=== PATIENT | female | born 1995 | race Caucasian/White ===

== ENCOUNTER 2017-01-05 08:48 | Inpatient (IN) | payer MEDICAID ==
[~2017-01-05] VITALS: Ht 162.6 cm; Wt 82.0 kg
--- NOTE | 2017-01-05 09:05 | TRIAGE ---
OB Triage Datetime Report Generated by CPN: 01/05/2017 09:05 Datetime: 01/05/2017 09:02 Time of Arrival: 01/05/2017 08:45 EGA: 39.2 Arrived By: Wheelchair Arrived From: Home Chief Complaint: SROM AT 0730 Movement: Present Contractions: Irregular Patient Complaints: Other Time Provider Notified: 01/05/2017 09:00 Provider Notified: DR GONZALEZ Initial Plan: EFM,NITRAZINE,CALL DR LISA Datetime: 01/05/2017 09:01 Maternal Assessment Level of Consciousness: Fully Conscious DTR's/Clonus: DTRs 2+; No Clonus Headache: Denies Blurred Vision: No Respiratory Effort: Unlabored; Regular Rhythm; Equal Expansion Breath Sounds, Left: Clear and Equal Breath Sounds, Right: Clear and Equal Nausea/Vomiting: Denies RUQ Epigastric Pain: Denies Facial Edema: None Temperature Route: Axillary Fall Risk Assessment History of Falling: (0) No Secondary Diagnosis: (0) No Ambulatory Aid: (0) Bedrest/Nurse Assist IV Therapy: (0) No Gait: (0) Normal/Bedrest/Immobile Mental Status: (0) Oriented to Own Ability Fall Score: 0 Fall Risk Score Definition: No Risk: No action required
[2017-01-05 09:07] VITALS: Ht 162.6 cm; Wt 82.0 kg
[2017-01-05 09:08] VITALS: BP 124/82; PULSE 90; RESP 20
[2017-01-05] MEDS ORDERED: PREN1TAB79 PO (09:11)
[2017-01-05] MEDS ORDERED: CARBOPROST 250 MCG INJ IM PRN ×2 (09:30→22:00)
[2017-01-05] MEDS ORDERED: BUTORPHANOL 2 MG INJ IV PRN (09:30)
[2017-01-05] MEDS ORDERED: IBUPROFEN 600 MG TAB PO PRN (09:30)
[2017-01-05] MEDS ORDERED: OXYTOCIN 30 UNITS/LR 500 ML IV SCH ×3 (09:30→10:00)
[2017-01-05] MEDS ORDERED: OXYTOCIN 30 UNITS/LR 500 ML IV PRN ×2 (09:30→22:00)
[2017-01-05] MEDS ORDERED: LIDOCAINE 1% (MPF) 30 ML INJ INJ PRN (09:30)
[2017-01-05] MEDS ORDERED: MISOPROSTOL 200 MCG TAB PR PRN ×2 (09:30→22:00)
[2017-01-05] MEDS ORDERED: METHYLERGONOVINE 0.2 MG INJ IM PRN ×2 (09:30→22:00)
[2017-01-05] MEDS: LACTATED RINGER'S 1,000 ML IV SCH ×2 (09:47→16:03)
[2017-01-05 10:34] LABS: ADD SCAN DIFF NO
[2017-01-05 10:40] LABS: BASOPHILS % 0.2 % (0.0-2.0); EOSINOPHILS % 0.5 % (0.0-7.0); HEMATOCRIT 34.8 % (37.0-47.0); HEMOGLOBIN 10.7 g/dl (12.0-16.0); LYMPHOCYTES # 1.6 10^3/ul (0.8-2.9); LYMPHOCYTES % 25.7 % (15.0-51.0); MEAN CORPUSCULAR HEMOGLOBIN 25.7 pg (29.0-33.0); MEAN CORPUSCULAR HGB CONC 30.7 g/dl (32.0-37.0); MEAN CORPUSCULAR VOLUME 83.5 fl (82.0-101.0); MEAN PLATELET VOLUME 11.5 fl (7.4-10.4); MONOCYTE # 0.6 10^3/ul (0.3-0.9); MONOCYTES % 8.8 % (0.0-11.0); NEUTROPHIL # 3.9 10^3/ul (1.6-7.5); NEUTROPHILS % 62.6 % (39.0-77.0); PLATELET COUNT 175 10^3/UL (140-415); RED BLOOD COUNT 4.17 10^6/ul (4.20-5.40); RED CELL DISTRIBUTION WIDTH 16.6 % (11.5-14.5); WHITE BLOOD COUNT 6.2 10^3/ul (4.8-10.8)
[2017-01-05 10:52] LABS: INR 0.98; PARTIAL THROMBOPLASTIN TIME 25.1 Sec (25.0-35.0)
[2017-01-05] MEDS ORDERED: LACTATED RINGER'S 1,000 ML IV PRN (12:00)
--- NOTE | 2017-01-05 17:15 | HP ---
Date/Time of Note Date/Time of Note DATE: 01/05/17 TIME: 17:13 OB - History Hx of Present Free Text/Dictation 39+wks GA Labor : 2 Para: 1 Care: Good Care Ultrasounds: Normal mid trimester US Obstetrical Complications: None Medical Complications: None Past Family/Social History * Past Medical, Surgical, Family and Obstetric Histories reviewed from chart. OB Admission Exam Vital Signs Vital Signs Vital Signs Date Time Temp Pulse Resp B/P Pulse Ox O2 Delivery O2 Flow Rate FiO2 01/05/17 09:08 98.6 90 20 124/82 Room Air Physical Exam Abdomen: WNL Extremities: Normal Cervical Dilatation: 3cm Effacement: 75% Station: -1 Membranes: Intact Accelerations: Accelerations Present Decelerations: No Decelerations Varibility: Moderate Contractions on Admission: 6-10 Minutes Apart Last 72 hours Lab Results CBC & BMP 01/05/17 09:34 OB Assessment/Plan Reason for admission: observation Plan: Expectant Management EDSON DACOSTA M.D. January 05, 2017 17:15
--- NOTE | 2017-01-05 17:17 | QN ---
Documentation Comment IUPC and IFM placed,Cathegory 2 tracing ,CX /-1 Amniofusion started is informed and he is asked to come in as he covers for his patient himself EDSON DACOSTA M.D. January 05, 2017 17:17
[2017-01-05] MEDS ORDERED: CEFAZOLIN 2 GM/50 ML (PMX) 50 ML IVPB ONE (17:51)
[2017-01-05] MEDS ORDERED: CEFAZOLIN 2 GM/50 ML (PMX) 50 ML IV SCH (18:00)
[2017-01-05] MEDS ORDERED: morphine SULFATE/PF (10 MG/10 ML) INJ ONE (18:07)
[2017-01-05] MEDS ORDERED: FENTAnyl 50 MCG/ML VIAL ONE (18:07)
[2017-01-05] MEDS ORDERED: PHENYLephrine (100 MCG/ML) 5ML SYG ONE (18:07)
[2017-01-05] MEDS ORDERED: EPHEDrine SULFATE 50 MG/5 ML SYG ONE (18:07)
[2017-01-05] MEDS ORDERED: ONDANSETRON 4 MG INJ ONE (18:27)
[2017-01-05] MEDS ORDERED: DEXAMETHASONE 4 MG/ML 1 ML INJ ONE (18:27)
[2017-01-05] MEDS ORDERED: MIDAZOLAM 1 MG/ML 2 ML INJ ONE (18:51)
--- NOTE | 2017-01-05 19:08 | HP ---
Date/Time of Note Date/Time of Note DATE: 01/05/17 TIME: 18:20 OB - History Hx of Present Free Text/Dictation This is a 20 years old female 2 para 1 EDC January 10, 2007 admitted to [facility] at 39 weeks and 2 days in labor during the course of the labor was noted frequent variable deceleration up to 3 minutes sometimes with late components, frequency of deceleration on a 4 cm dilated cervix even after amnioinfusion, not anticipating rather speedy and fast delivery , baby's intolerance to contraction, this was discussed with the patient and option of continuation of trial of labor for a short period hoping that variable deceleration will stop versus delivery patient opted for delivery, she was informed of complication of section including but not limited to bowel bladder injury infection hemorrhage wound hematoma she decided to have delivery Chief Complaint: Labor contractions Estimated Due Date: January 10, 2017 : 2 Para: 1 Care: Good Care Ultrasounds: Normal mid trimester US Obstetrical Complications: None Medical Complications: None Past Family/Social History * Past Medical, Surgical, Family and Obstetric Histories reviewed from chart. Rubella: immune RPR/VDRL: Negative GBS Status: Negative HBsAG: Negative OB Admission Exam Vital Signs Vital Signs Vital Signs Date Time Temp Pulse Resp B/P Pulse Ox O2 Delivery O2 Flow Rate FiO2 01/05/17 09:08 98.6 90 20 124/82 Room Air Physical Exam HEENT: WNL Abdomen: WNL Extremities: Normal Reflexes: Normal Cervical Dilatation: 4cm Effacement: 75% Station: -2 Membranes: Intact Amniotic Fluid: Clear Heart Rate: 130's Decelerations: Variable Decelerations Varibility: Moderate Contractions on Admission: 6-10 Minutes Apart Intensity: Moderate Last 72 hours Lab Results CBC & BMP 01/05/17 09:34 SUBHA GONZALEZ MD January 05, 2017 19:08
[2017-01-05] MEDS ORDERED: HYDROmorphONE 1 MG/ML SYG IV PRN ×2 (19:30)
[2017-01-05] MEDS ORDERED: NALOXONE (0.4 MG/ML) INJ IV PRN (19:30)
[2017-01-05] MEDS ORDERED: DIPHENHYDRAMINE 50 MG INJ IV PRN (19:30)
[2017-01-05] MEDS ORDERED: ZOLPIDEM 5 MG TAB PO PRN (19:30)
--- NOTE | 2017-01-05 19:34 | OPR ---
DATE OF OPERATION: 01/05/2017 PREOPERATIVE DIAGNOSIS: Intrauterine at 39 weeks and 2 days, category 2 and 3 heart tracing, not anticipating a short and speedy delivery. POSTOPERATIVE DIAGNOSIS: Intrauterine at 39 weeks and 2 days, category 2 and 3 hear t tracing, not anticipating a short and speedy delivery. OPERATION PERFORMED: Primary transverse low cervical section. SURGEON: Subha Gonzalez MD RECEIVER BULK SYSTEM: Elvis Guaman MD ANESTHESIA: Spinal. ANESTHESIOLOGIST: Handy Avilez DO FINDINGS: Live baby girl with the Apgars 8 and 9. DETAILS OF THE PROCEDURE: Under satisfactory spinal anesthesia, the patient was prepped and draped and placed in supine position, tilted to the left. Pfannenstiel incision was made. Incision fatoumata d through the subcutaneous tissue. Bleeders brought under control with electrocautery. Fascia inci sed to the length of the incision. Rectus muscle divided in midline. Peritoneum exposed, entered t hrough a transverse incision. Exploration of abdomen, gravid uterus at term, normal appearing tubes and ovaries. Bladder flap was developed. Transverse incision was made in the lower segment of the uterus. Amniotic sac ruptured. Clear amniotic fluid noted. Live baby girl was delivered from une ngaged vertex. Nasal oropharyngeal suction was performed. Baby handed to the team for imm ediate attention. The patient received 20 units of Pitocin. Placenta delivered manually intact. U terine cavity cleaned with wet sponge and drainage established. Uterus closed in 2 layers using Mon ocryl #1 in continuous fashion. Peritoneal cavity irrigated with warm saline. Sponge, needle, and instrument reported to be correct. Abdominal peritoneum closed with 2-0 chromic catgut continuously . Rectus muscle approximated with 3 interrupted 2-0 chromic catgut. Fascia closed with #1 PDS in a continuous fashion. Subcutaneous tissue approximated with interrupted 2-0 chromic catgut. Skin cl osed with yu. Estimated blood loss 600 mL. Urine bag, 200 mL of clear urine. The patient gregor erated procedure well, transferred to recovery room in a good condition. Dictated By: SUBHA GONZALEZ MD HF/NTS Conf#: [id number] DID#: [id number]
[2017-01-05] MEDS: ONDANSETRON 4 MG INJ IV PRN (19:42)
[2017-01-05] MEDS: KETOROLAC 30 MG INJ IV PRN (19:42)
[2017-01-05 21:50] VITALS: BP 124/67; PULSE 69; RESP 18
[2017-01-05] MEDS ORDERED: OXYCODONE/ACETAMINOPHEN (5/325) TAB PO PRN ×2 (22:00)
[2017-01-05] MEDS ORDERED: ACETAMINOPHEN/CODEINE #3 TAB PO PRN (22:00)
[2017-01-05] MEDS ORDERED: CEFAZOLIN 1 GM/50 ML (PMX) 50 ML IVPB SCH (22:00)
[2017-01-05] MEDS ORDERED: LANOLIN 7 GM TUBE TOP PRN (22:00)
[2017-01-05 22:20] VITALS: BP 120/62; PULSE 70; RESP 18
[2017-01-06] MEDS ORDERED: IBUPROFEN 600 MG TAB PO SCH
[2017-01-06] MEDS: OXYTOCIN 30 UNITS/LR 500 ML IV SCH ×3 (00:05→10:44)
[2017-01-06] MEDS: ONDANSETRON 4 MG INJ IV PRN (01:54)
[2017-01-06 02:00] VITALS: BP 120/65; PULSE 70; RESP 18
[2017-01-06] MEDS: IBUPROFEN 600 MG TAB PO SCH ×5 (06:00→23:48)
[2017-01-06 08:20] LABS: ADD SCAN DIFF NO
[2017-01-06 08:26] LABS: BASOPHILS % 0.2 % (0.0-2.0); HEMATOCRIT 26.2 % (37.0-47.0); HEMOGLOBIN 8.3 g/dl (12.0-16.0); LYMPHOCYTES # 1.9 10^3/ul (0.8-2.9); LYMPHOCYTES % 18.4 % (15.0-51.0); MEAN CORPUSCULAR HEMOGLOBIN 26.3 pg (29.0-33.0); MEAN CORPUSCULAR HGB CONC 31.7 g/dl (32.0-37.0); MEAN CORPUSCULAR VOLUME 82.9 fl (82.0-101.0); MEAN PLATELET VOLUME 11.6 fl (7.4-10.4); MONOCYTES % 9.8 % (0.0-11.0); NEUTROPHIL # 7.2 10^3/ul (1.6-7.5); NEUTROPHILS % 70.6 % (39.0-77.0); PLATELET COUNT 159 10^3/UL (140-415); RED BLOOD COUNT 3.16 10^6/ul (4.20-5.40); RED CELL DISTRIBUTION WIDTH 16.5 % (11.5-14.5); WHITE BLOOD COUNT 10.1 10^3/ul (4.8-10.8)
[2017-01-06 08:45] VITALS: BP 110/59; PULSE 64; RESP 16
[2017-01-06] MEDS: SENNA/DOCUSATE NA (8.6MG/50MG) TAB PO SCH ×2 (09:14→20:58)
[2017-01-06] MEDS: LACTATED RINGER'S 1,000 ML IV SCH (10:27)
[2017-01-06 12:40] VITALS: BP 100/54; PULSE 82; RESP 16
[2017-01-06] MEDS: KETOROLAC 30 MG INJ IV PRN (15:39)
[2017-01-06 15:45] VITALS: BP 112/58; PULSE 87; RESP 16
--- NOTE | 2017-01-06 16:47 | PN ---
Date/Time of Note Date/Time of Note DATE: 01/06/17 TIME: 16:46 OB Subjective Subjective Subjective Post day 1 Afebrile VSs stable abdomen soft uterus firm lochia normal extremity normal bowel sounds. Ambulation encouraged Laboratory Tests Test 01/06/17 07:14 White Blood Count 10.110^3/ul Red Blood Count 3.1610^6/ul Hemoglobin 8.3g/dl Hematocrit 26.2% Mean Corpuscular Volume 82.9fl Mean Corpuscular Hemoglobin 26.3pg Mean Corpuscular Hemoglobin Concent 31.7g/dl Red Cell Distribution Width 16.5% Platelet Count 05156^3/UL Mean Platelet Volume 11.6fl Neutrophils % 70.6% Lymphocytes % 18.4% Monocytes % 9.8% Eosinophils % 0.0% Basophils % 0.2% Nucleated Red Blood Cells % 0.0/100WBC Neutrophils # 7.210^3/ul Lymphocytes # 1.910^3/ul Monocytes # 1.010^3/ul Eosinophils # 0.010^3/ul Basophils # 0.010^3/ul Nucleated Red Blood Cells # 0.010^3/ul Current Medications Medications (Trade) Dose Ordered Sig/Erik Route PRN Reason Start Time Stop Time Status Last Admin Dose Admin Lactated Ringer's (Lr) 1,000 ml @ 125 mls/hr Q8H IV 01/05/17 09:28 01/05/17 21:39 DC 01/06/17 10:27 Butorphanol Tartrate (Stadol) 2 mg Q2H PRN IV PAIN 01/05/17 09:30 01/05/17 21:39 DC Lidocaine 30 ml 30 ml ONCE PRN INJ EPISIOTOMY/TEARING 01/05/17 09:30 01/05/17 21:39 DC Oxytocin/Lactated Ringer's 500 ml @ 500 mls/hr ONCE -MAY REPEAT X1 IV 01/05/17 09:30 01/05/17 21:39 DC Oxytocin/Lactated Ringer's 500 ml @ 125 mls/hr ONCE IV 01/05/17 09:30 01/05/17 21:39 DC 01/05/17 19:29 Ibuprofen 600 mg 600 mg ONCE PRN PO Mild Pain (Pain Score 1-3) 01/05/17 09:30 01/05/17 21:39 DC Lactated Ringer's 1,000 ml @ 2,000 mls/hr Q30M PRN IV PRE-EPIDURAL BOLUS 01/05/17 12:00 01/05/17 21:39 DC 01/05/17 17:53 Oxytocin/Lactated Ringer's 500 ml @ 0 mls/hr ONCE PRN IV For Hemorrhage Management 01/05/17 09:30 01/05/17 21:39 DC Methylergonovine Maleate (Methergine) 0.2 mg ONCE PRN IM VAGINAL BLEEDING 01/05/17 09:30 01/05/17 21:39 DC Carboprost Tromethamine (Hemabate) 250 mcg ONCE PRN IM VAGINAL BLEEDING 01/05/17 09:30 01/05/17 21:39 DC Misoprostol 1000 mcg 1,000 mcg ONCE PRN [place] VAGINAL BLEEDING 01/05/17 09:30 01/05/17 21:39 DC Oxytocin/Lactated Ringer's 500 ml @ 0 mls/hr TITRATE IV 01/05/17 10:00 01/05/17 21:39 DC 01/05/17 09:56 Cefazolin Sodium/ Dextrose 50 ml @ 100 mls/hr ONCE IV 01/05/17 18:00 01/05/17 21:39 DC Cefazolin Sodium/ Dextrose (Ancef 2 Gm/50 ml (Pmx)) 50 ml @ ud STK-MED ONCE IVPB 01/05/17 17:51 01/05/17 17:52 DC Ephedrine Sulfate 50 mg STK-MED ONCE .ROUTE 01/05/17 18:07 01/05/17 18:08 DC Morphine Sulfate (Duramorph) 10 mg STK-MED ONCE .ROUTE 01/05/17 18:07 01/05/17 18:08 DC Fentanyl (Sublimaze) 100 mcg STK-MED ONCE .ROUTE 01/05/17 18:07 01/05/17 18:08 DC Phenylephrine HCl (Reid-Synephrine Inj Syg) 500 mcg STK-MED ONCE .ROUTE 01/05/17 18:07 01/05/17 18:08 DC Ondansetron HCl (Zofran Inj) 4 mg STK-MED ONCE .ROUTE 01/05/17 18:27 01/05/17 18:28 DC Dexamethasone (Decadron) 4 mg STK-MED ONCE .ROUTE 01/05/17 18:27 01/05/17 18:28 DC Midazolam HCl (Versed) 2 mg STK-MED ONCE .ROUTE 01/05/17 18:51 01/05/17 18:52 DC Naloxone HCl (Narcan) 0.1 mg Q2M PRN IV FOR RESP RATE 8 OR LESS 01/05/17 19:30 01/06/17 19:29 Ketorolac Tromethamine (Toradol) 30 mg Q6H PRN IV PAIN 01/05/17 19:30 01/06/17 19:29 01/06/17 15:39 Hydromorphone HCl (Dilaudid) 0.2 mg Q3H PRN IV PAIN LEVEL 1-5 01/05/17 19:30 01/06/17 19:29 Hydromorphone HCl (Dilaudid) 0.4 mg Q3H PRN IV PAIN LEVEL 6-10 01/05/17 19:30 01/06/17 19:29 Diphenhydramine HCl (Benadryl) 25 mg Q6H PRN IV ITCHING 01/05/17 19:30 01/06/17 19:29 01/05/17 20:48 Ondansetron HCl (Zofran Inj) 4 mg Q6H PRN IV NAUSEA AND/OR VOMITING 01/05/17 19:30 01/06/17 19:29 01/06/17 01:54 Zolpidem Tartrate (Ambien) 5 mg HS MAY REPEAT X 1 PRN PO INSOMNIA 01/05/17 19:30 01/06/17 19:29 Acetaminophen/ Codeine Phosphate (Tylenol No.3) 1 tab Q4H PRN PO PAIN LEVEL 4-6 01/05/17 22:00 Acetaminophen/ Codeine Phosphate (Tylenol No.3) 2 tab Q4H PRN PO PAIN LEVEL 7-10 01/05/17 22:00 Oxycodone/ Acetaminophen (Percocet (5/ 325)) 1 tab Q4H PRN PO PAIN LEVEL 4-6 01/05/17 22:00 Oxycodone/ Acetaminophen (Percocet (5/ 325)) 2 tab Q4H PRN PO PAIN LEVEL 7-10 01/05/17 22:00 Ibuprofen (Motrin) 600 mg Q6 PO 01/06/17 00:00 UNV Simethicone (Mylicon) 160 mg Q8H PRN PO DISTENSION/GAS/BLOATING 01/05/17 22:00 Senna/Docusate Sodium (Senokot-S) 1 tab BID PO 01/06/17 09:00 01/06/17 09:14 Lanolin (Mob-S-Hcnqdz) 1 applic BEDSIDE MEDICATION PRN TOP BEDSIDE FOR DIMPLE TO NIPPLES 01/05/17 22:00 Diphtheria/ Tetanus/Acell Pertussis 0.5 ml 0.5 ml ONCE ONCE IM* 01/08/17 09:00 01/08/17 09:01 Oxytocin/Lactated Ringer's 500 ml @ 0 mls/hr ONCE PRN IV For Hemorrhage Management 01/05/17 22:00 Methylergonovine Maleate (Methergine) 0.2 mg ONCE PRN IM VAGINAL BLEEDING 01/05/17 22:00 Carboprost Tromethamine (Hemabate) 250 mcg ONCE PRN IM VAGINAL BLEEDING 01/05/17 22:00 Misoprostol 1000 mcg 1,000 mcg ONCE PRN [place] VAGINAL BLEEDING 01/05/17 22:00 Cefazolin Sodium 50 ml @ 100 mls/hr ONCE IVPB 01/05/17 22:00 01/05/17 22:29 DC 01/05/17 22:39 Oxytocin/Lactated Ringer's 500 ml @ 125 mls/hr Q4H IV 01/05/17 21:37 01/06/17 10:45 DC 01/06/17 05:54 Ibuprofen (Motrin) 600 mg Q6 PO 01/06/17 00:00 SUBHA GONZALEZ MD January 06, 2017 16:47
[2017-01-06 19:50] VITALS: BP 119/74; PULSE 90; RESP 18
[2017-01-06] MEDS: ACETAMINOPHEN/CODEINE #3 TAB PO PRN (22:04)
[2017-01-07 00:20] VITALS: BP 99/52; RESP 19
[2017-01-07 04:30] VITALS: BP 99/52; PULSE 72; RESP 18
[2017-01-07] MEDS: IBUPROFEN 600 MG TAB PO SCH ×4 (06:00→23:21)
[2017-01-07 08:30] VITALS: BP 125/74; PULSE 86; RESP 16
[2017-01-07] MEDS: SENNA/DOCUSATE NA (8.6MG/50MG) TAB PO SCH ×2 (09:02→21:07)
[2017-01-07] MEDS: ACETAMINOPHEN/CODEINE #3 TAB PO PRN (09:02)
--- NOTE | 2017-01-07 09:51 | PN ---
Date/Time of Note Date/Time of Note DATE: 01/07/17 TIME: 09:50 OB Subjective Subjective Subjective Post day 2 Afebrile VS stable abdomen soft incision dry uterus firm lochia normal patient had normal bowel movement plan of a.m. discharge discussed with the patient SUBHA GONZALEZ MD January 07, 2017 09:51
[2017-01-07 15:45] VITALS: BP 103/58; PULSE 88; RESP 20
[2017-01-07 19:30] VITALS: BP 117/70; PULSE 94; RESP 19
[2017-01-08 03:35] VITALS: BP 113/69; PULSE 84; RESP 19
[2017-01-08] MEDS: IBUPROFEN 600 MG TAB PO SCH ×2 (05:39→12:43)
[2017-01-08 08:00] VITALS: BP 110/68; PULSE 80; RESP 19
[2017-01-08] MEDS ORDERED: DIPHTH/TET/ACEL PERTUSS (ADULT) 0.5 ML VIAL IM* ONE (09:00)
[2017-01-08] MEDS: SENNA/DOCUSATE NA (8.6MG/50MG) TAB PO SCH (09:03)
--- NOTE | 2017-01-08 10:27 | PD.PPDC ---
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
--- NOTE | 2017-01-08 10:30 | DS ---
Date/Time of Note Date/Time of Note DATE: 01/08/17 TIME: 10:29 Discharge Summary Admission/Discharge Info Admit Date/Time January 05, 2017 at 09:00 Discharge Date/Time January 08, 2017 10:35 AM Final Diagnosis Term primary Patient Condition: Good Procedures Primary Hx of Present Illness Term nonreassuring heart tracing primary section Hospital Course Satisfactory uneventful Home Meds Reported Medications Vit W-Ca,Fe,FA(<1 mg) ( Vitamins) 1 Each Tablet, 1 EACH PO, TAB 01/05/17 Follow-up Plan Appointment clinic in 5 days to discontinue yu Primary Care Provider Care Physician No Primary Time spent on discharge: > 30 minutes SUBHA GONZALEZ MD January 08, 2017 10:30
[2017-01-08 16:00] VITALS: BP 123/77; PULSE 101; RESP 20
== END 2017-01-08 17:43 | disposition home or self-care (01) | DRG 766 ==
LOC: OBT 08:48 → L-D 08:50 → OBT 09:00 → L-D 09:24 → PP1 21:59
PROVIDERS: ADMIT Obstetrics & Gynecology; ATTEND Obstetrics & Gynecology
PROC: 3E0E77Z Introduction of Electrolytic and Water Balance Substance into Products of Conception, Via Natural or Artificial Opening (ICD-10-PCS; 2017-01-05)
PROC: 10H07YZ Insertion of Other Device into Products of Conception, Via Natural or Artificial Opening (ICD-10-PCS; 2017-01-05)
PROC: 10H073Z Insertion of Monitoring Electrode into Products of Conception, Via Natural or Artificial Opening (ICD-10-PCS; 2017-01-05)
PROC: 4A1H74Z Monitoring of Products of Conception, Cardiac Electrical Activity, Via Natural or Artificial Opening (ICD-10-PCS; 2017-01-05)
PROC: 4A1HX4Z Monitoring of Products of Conception, Cardiac Electrical Activity, External Approach (ICD-10-PCS; 2017-01-05)
PROC: 10D00Z1 Extraction of Products of Conception, Low, Open Approach (ICD-10-PCS; principal; 2017-01-05 18:00)
PROC: 3E0234Z Introduction of Serum, Toxoid and Vaccine into Muscle, Percutaneous Approach (ICD-10-PCS; 2017-01-08)
DX: O76 Abnormality in fetal heart rate and rhythm complicating labor and delivery (principal); Z23 Encounter for immunization; Z3A.39 39 weeks gestation of pregnancy; Z37.0 Single live birth
CPT/HCPCS: 85025; 85610; 85730; 86592; 86900; 86901; 87340; 90715; 94760; 99464; G0463; J0690; J1100; J1200; J1885; J2250; J2274; J2370; J2405; J2590; J3010; J7120